=== PATIENT | male | born 1970 | race Caucasian/White ===

== ENCOUNTER → 2023-11-16 08:04 | Outpatient (REF) | payer BC, SELFPAY | LOC: HWRCS 08:04 | PROVIDERS: ATTENDING PHYSICIAN Internal Medicine; FAMILY PHYSICIAN Physician Assistant Medical | DX: I10 Essential (primary) hypertension (principal); I45.10 Unspecified right bundle-branch block | CPT/HCPCS: 93306 ==

== ENCOUNTER → 2024-04-11 14:46 | Outpatient (REF) | payer BC, SELFPAY | LOC: HWRAD 14:46 | PROVIDERS: ATTENDING PHYSICIAN Internal Medicine; FAMILY PHYSICIAN Physician Assistant Medical | DX: R31.29 Other microscopic hematuria (principal); R35.0 Frequency of micturition; Z87.442 Personal history of urinary calculi | CPT/HCPCS: 74176 ==

== ENCOUNTER 2024-05-02 06:02 | Day surgery (SDC) | payer BC, SELFPAY ==
[2024-04-28 09:08] LABS: Hematocrit 53.9 % (39.0-52.0); Mean Corp Hgb Conc. 35.3 g/dL (33.0-37.0); Mean Corpuscular Hgb 30.6 pg (27.0-31.0); Mean Corpuscular Volume 86.9 fL (80.0-94.0); Mean Platelet Volume 9.9 fL (7.4-10.4); Platelet Count 165 10^3/uL (130-400); Red Cell Dist. Width 14.2 % (11.5-14.5)
[2024-04-28 09:35] LABS: Blood Urea Nitrogen 22 mg/dl (9-20); Calcium 10.3 mg/dl (8.4-10.2); Carbon Dioxide 20 mmol/L (22-30); Chloride 107 mmol/L (98-107); Glucose 95 mg/dl (70-99); Potassium 4.5 mmol/L (3.5-5.1); Sodium 136 mmol/L (135-145); eGFR > 60.00
[2024-04-28 14:14] VITALS: BMI 29.0
[2024-05-02] VITALS (13 sets, daily range): BP systolic 103–153; BP diastolic 58–97; BMI 29.0
[2024-05-02] MEDS: NORMOSOL-R/PLASMALYTE-A 1000 IV (06:33)
[2024-05-02] MEDS: Pyridium 200 MG PO (08:51)
== END 2024-05-02 09:45 | disposition home or self-care (01) ==
LOC: SDS 06:02
PROVIDERS: ATTENDING PHYSICIAN Specialist; FAMILY PHYSICIAN Physician Assistant Medical
DX: N20.0 Calculus of kidney (principal)
CPT/HCPCS: 52356; 36415; 74018; 76000; 80048; 85027; 93005; C1894; C2617